=== PATIENT | male | born 1980 | race Caucasian/White ===

== ENCOUNTER 2023-07-30 09:16 | Emergency (ER) | payer OTHER, SELFPAY ==
[2023-07-30 09:26] VITALS: BP 159/89; PULSE 59; TEMP 36.5; O2SAT 97; BMI 33.2
--- NOTE | 2023-07-30 10:01 | ED_ITS ---
HPI - Skin/Abscess/Foreign Bdy General Chief complaint: Skin/Abscess/Foreign Body Stated complaint: TAIL BONE PAIN POSSIBLE CYST Time Seen by Provider: 07/30/23 09:53 Source: patient Mode of arrival: walk-in Limitations: no limitations History of Present Illness HPI narrative: This patient is here complaining of what he believes is an infection in his lower back area. He has had several I&D procedures of other skin areas in the past but has never had a sore or abscess in this area. He is not diabetic. He has not had fever show chills. He has not been on any antibiotics. It started bothering him about 4 5 days ago and really started growing getting more painful and more tender in the last 24 to 48 hours. Of particular notice is that he has had spine surgery with a lot of hardware in his lumbar area about 5 years ago. This infection is very close to that area as noted below. Also incidentally this patient has his own personal hot tub at home and we talked about that may be the source of his colonization since he has had infections both prior to and subsequent to using his hot tub at home. Incidentally I will strongly encouraged him to talk to a spine surgeon about future use of this hot tub since this particular area is so close to his spinal area. Incidentally he does not have any type of neurological symptoms tingling paresis paresthesias that are new in his lower extremities today. Related Data Home Medications ?Medication ?Instructions ?Recorded ?Confirmed zolpidem 10 mg tablet (Ambien) 10 mg PO BEDTIME 07/30/23 07/30/23 Allergies Allergy/AdvReac Type Severity Reaction Status Date / Time acetaminophen [From Vicodin] Allergy Severe Swelling Verified 07/30/23 09:25 of Lip/Tongue/Throat hydrocodone [From Vicodin] Allergy Severe Swelling Verified 07/30/23 09:25 of Lip/Tongue/Throat Exam Narrative Exam Narrative: Awake alert very pleasant very stoic does not appear ill or toxic. Cognition and mentation are normal. He has no respiratory or chest type complaints today. Problem focused examination Examining the low back and buttock area he has a clean linear well-healed incision consistent with his previous lumbar surgery. Inferior and lateral to that just off the midline is a red warm fluctuant tender area it is not draining. It does not involve the perirectal area. It is definitely in the soft tissue of the buttock. No other abnormalities are noted in this area. Constitutional Vital Signs, click to edit/add: Last Vital Signs Temp 97.7 F 07/30/23 09:26 Pulse 59 L 07/30/23 09:26 Resp 20 07/30/23 09:26 BP 159/89 H 07/30/23 09:26 Pulse Ox 97 07/30/23 09:26 O2 Del Method Room Air 07/30/23 09:26 Course Vital Signs Vital signs: Vital Signs Temperature 97.7 F 07/30/23 09:26 Pulse Rate 59 L 07/30/23 09:26 Respiratory Rate 20 07/30/23 09:26 Blood Pressure 159/89 H 07/30/23 09:26 Pulse Oximetry 97 07/30/23 09:26 Oxygen Delivery Method Room Air 07/30/23 09:26 Temperature 97.7 F 07/30/23 09:26 Pulse Rate 59 L 07/30/23 09:26 Respiratory Rate 20 07/30/23 09:26 Blood Pressure 159/89 H 07/30/23 09:26 Pulse Oximetry 97 07/30/23 09:26 Oxygen Delivery Method Room Air 07/30/23 09:26 MDM - Skin/Abscess/Foreign Bdy MDM Narrative Medical decision making narrative: Procedure note after explaining the procedure to the patient and offering him analgesia he declined. Lidocaine 1% with epinephrine was applied to the area of maximal fluctuance. A #11 blade was used to make a stellate type of incision. Hemostats were then used to break up deep abscess formation with a large amount of foul-smelling purulent debris. A culture was done. Further pressure was applied to exude even more purulent material. We then placed a iodoform gauze. He tolerated the procedure very well. He indicated to me that Vicodin caused an allergic reaction but he is not allergic and he can tolerate Percocet. We placed doxycycline. As I said a culture was done Discharge Plan Discharge Stand Alone Forms: Portal Instructions Chief Complaint: Skin/Abscess/Foreign Body Clinical Impression: Abscess of buttock, right Patient Disposition: Home, Self-Care Time of Disposition Decision: 10:27 Prescriptions / Home Meds: No Action zolpidem [Ambien] 10 mg tablet 10 mg PO BEDTIME Print Language: Lithuanian Additional Instructions: Doxycycline/Percocet/remove wick in 24 hours , sitz bath's , off for 2 days Referrals: JEANRO LAI [Primary Care Provider] - 1 week
[2023-07-30] MEDS: LIDOCAINE HCL 1%-EPINEPHRINE 1:100,000 20 ML MDV INJ (10:06)
== END 2023-07-30 10:39 | disposition home or self-care (01) ==
PROVIDERS: Emergency Provider Emergency Medicine Emergency Medical Services; PCP Family Medicine
DX: L02.31 Cutaneous abscess of buttock (principal)
CPT/HCPCS: 10060; 87070; 87076; 99284